=== PATIENT | female | born 1970 | race Hispanic/Latino ===

== ENCOUNTER 2024-01-25 16:04 | Emergency (ER) | payer OTHER ==
[~2024-01-25] VITALS: Ht 172.7 cm; Wt 108.9 kg
[2024-01-25 16:56] LABS: BASOPHILS % 0.2 % (0.0-1.0); EOSINOPHILS % 0.2 % (0.0-6.0); HEMATOCRIT 26.7 % (34.2-44.1); HEMOGLOBIN 7.2 g/dL (12.0-16.0); LYMPHOCYTES # (AUTO) 0.7 (1.0-3.2); LYMPHOCYTES % 17.5 % (18.0-39.1); MEAN CORPUSCULAR VOLUME 63.1 fL (81-99); MONOCYTES # (AUTO) 0.3 (0.2-0.8); MONOCYTES % 7.8 % (4.4-11.3); NEUTROPHILS % 73.8 % (38.7-80.0); PLATELET COUNT 260 x10e3/uL (140-360); RED BLOOD COUNT 4.23 x10e6/uL (3.6-5.1); RED CELL DISTRIBUTION WIDTH 20.5 % (11.7-14.4); WHITE BLOOD COUNT 4.11 x10e3/uL (4.8-10.8)
[2024-01-25 17:11] LABS: ALBUMIN 3.7 g/dL (3.5-5.0); ALBUMIN/GLOBULIN RATIO 0.8 (0.8-2.0); ANION GAP 13.6 mmol/L (8-16); BILIRUBIN,TOTAL 0.4 mg/dL (0.2-1.2); CALCIUM 8.8 mg/dL (8.4-10.2); CREATININE, SERUM 0.67 mg/dL (0.57-1.11); POTASSIUM 3.6 mmol/L (3.5-5.1); TOTAL PROTEIN 8.1 g/dL (6.5-8.1)
[2024-01-25 17:17] LABS: TROPONIN I 0.005 ng/mL (0-0.300)
[2024-01-25 18:00] LABS: CLARITY,URINE CLOUDY (CLEAR); COLOR,URINE BROWN (YELLOW)
[2024-01-25 18:01] LABS: LEUKOCYTE ESTERASE ,URINE SMALL (NEGATIVE); NITRITE,URINE NEGATIVE (NEGATIVE); PH,URINE 6 (5 - 7); PROTEIN,URINE DIPSTICK >=300 (NEGATIVE); URINE UROBILINOGEN 0.2 mg/dL (0.2 - 1)
[2024-01-25 18:02] LABS: BILIRUBIN,URINE LARGE (NEGATIVE); GLUCOSE, URINE NEGATIVE (NEGATIVE); KETONES,URINE NEGATIVE (NEGATIVE)
[2024-01-25 18:12] LABS: BACTERIA,URINE FEW /HPF; RBC,URINE 21-50 /HPF (0-5)
[2024-01-25] MEDS: SODIUM CHLORIDE 0.9% 1000ML 1,000 ML IV STA (19:32)
[2024-01-25] MEDS: FAMOTIDINE 20 MG/2 ML VIAL IV STA (19:33)
[2024-01-25] MEDS: ONDANSETRON HCL INJ 2MG/ML 2ML 2 MG/ML VIAL IV STA (19:34)
[2024-01-25] MEDS: HYDROCODONE/APAP 10MG-325MG TAB PO ONE (19:34)
[2024-01-25] MEDS ORDERED: IOPAMIDOL 370 MG/ML 100 ML INFUS..BTL INJ ONE (20:01)
[2024-01-25 22:00] VITALS: O2SAT 97
[2024-01-25] MEDS ORDERED: ONDANSETRON ODT4 MG PO (22:02)
[2024-01-25] MEDS ORDERED: PROTONIX20 MG PO (22:02)
[2024-01-25] MEDS ORDERED: PEPCID20 MG PO (22:02)
== END 2024-01-25 22:11 | disposition home or self-care (01) ==
LOC: ER 16:20
DX: R50.9 Fever, unspecified (principal); R10.13 Epigastric pain; D64.9 Anemia, unspecified; K21.9 Gastro-esophageal reflux disease without esophagitis
CPT/HCPCS: 36415; 71046; 74177; 80053; 81001; 82550; 83690; 84484; 84702; 85025; 93005; 99284; C9113; J2405; J7030; Q9967

== ENCOUNTER → 2025-07-11 | Outpatient (REF) | payer OTHER ==
[~2025-07-11] MED LIST: ONDANSETRON ODT4 MG PO; PEPCID20 MG PO; PROTONIX20 MG PO
== END ==
LOC: US 13:15
PROVIDERS: ATTEND Family Medicine
DX: M54.2 Cervicalgia (principal); R22.1 Localized swelling, mass and lump, neck; M25.511 Pain in right shoulder
CPT/HCPCS: 76536